=== PATIENT | female | born 2005 | race Caucasian/White ===

== ENCOUNTER 2025-07-28 10:02 | Emergency (ER) | payer OTHER ==
[~2025-07-28] VITALS: Ht 172.7 cm; Wt 65.3 kg
[2025-07-28] MEDS ORDERED: LAMOTRIGINE25 MG PO (10:13)
[2025-07-28] MEDS ORDERED: LITHIUM CARBON300 MG PO (10:13)
[2025-07-28 10:18] LABS: BASOPHILS 0.5 % (0.1-1.2); EOSINOPHILS 1.0 % (0.7-5.8); LYMPHOCYTES 41.7 % (19.3-51.7); MCH 31.7 PG (25.6-32.2); MCHC 34.1 g/dL (32.2-35.5); MCV 92.8 fL (79.4-94.8); MONOCYTES 12.6 % (4.7-12.5); NEUTROPHILS 43.6 % (34.0-71.1); RBC 3.63 M/uL (3.93-5.22)
[2025-07-28 10:45] LABS: ALCOHOL, MEDICAL 101 ng/dL (<3); ALT (SGPT) 11 U/L (14-59); AST (SGOT) 11 U/L (15-37); GLOMERULAR FILTRATION RATE,EST 137 mL/min (>60); PROTEIN, TOTAL 6.5 g/dL (6.4-8.2); TSH, 3RD GENERATION 0.039 uIU/mL (0.358-3.740); UREA NITROGEN 1 mg/dL (7-18)
[2025-07-28] MEDS ORDERED: ACETAMINOPHEN 325 MG TAB PO ONE (15:30)
[2025-07-28 16:01] LABS: BLOOD/HGB, URINE NEGATIVE (Negative); KETONE, URINE NEGATIVE (Negative); LEUK ESTERASE, URINE NEGATIVE (negative); NITRITE, URINE NEGATIVE (negative)
[2025-07-28 16:12] LABS: AMPHETAMINES, URINE NEGATIVE (NEGATIVE); BARBITURATES, URINE NEGATIVE (NEGATIVE); BENZODIAZEPINE, URINE NEGATIVE (NEGATIVE); CANNABINOID, URINE POSITIVE (NEGATIVE); COCAINE, URINE NEGATIVE (NEGATIVE); ECSTASY, URINE NEGATIVE (NEGATIVE); FENTANYL, URINE NEGATIVE (NEGATIVE); METHADONE, URINE NEGATIVE (NEGATIVE); OPIATES, URINE NEGATIVE (NEGATIVE); OXYCODONE, URINE NEGATIVE (NEGATIVE); PHENCYCLIDINE, URINE NEGATIVE (NEGATIVE)
[2025-07-28 16:19] VITALS: BP 97/63
[2025-07-28 17:29] LABS: N. GONORRRHOEAE BY PCR NOT DETECTED (NOT DETECT)
[2025-07-29 11:27] LABS: LAMOTRIGINE 14.2 ug/mL (3.0-15.0)
--- NOTE | 2025-07-30 09:53 | EKG ---
[facility] [address] [facility] [place], [place] [address] Signed Normal sinus rhythm with sinus arrhythmia Normal ECG No previous ECGs available Confirmed by Marin Poe DO ([id number]) on 07/30/2025 9:52:51 AM Electronically Signed By: MARIN POE DO 07/30/25 0953 PATIENT NAME: YINA RUSH DERIC Electrocardiogram DATE OF : [birth year] PHYSICIAN: MARIN POE DO REPORT #: [id number] REPORT IS CONFIDENTIAL AND NOT TO BE RELEASED WITHOUT AUTHORIZATION
== END 2025-07-28 16:15 | disposition home or self-care (01) ==
LOC: ED 10:02
PROVIDERS: Emergency Medicine
DX: T42.6X2A Poisoning by other antiepileptic and sedative-hypnotic drugs, intentional self-harm, initial encounter (principal); T56.892A Toxic effect of other metals, intentional self-harm, initial encounter; F10.129 Alcohol abuse with intoxication, unspecified
CPT/HCPCS: 36415; 80053; 80175; 80178; 80307; 81003; 84443; 84703; 85025; 93005; 93010; 99285; A9270; G0480